=== PATIENT | male | born 1955 | race Caucasian/White ===

== ENCOUNTER → 2016-06-08 | Outpatient (CLI) | payer BC ==
[~2016-06-08] MED LIST: HYDR-5688 PO
--- NOTE | 2016-06-08 11:24 | DIAGNOSTIC IMAGING REPORT ---
MRI OF THE RIGHT SHOULDER WITHOUT CONTRAST CLINICAL HISTORY: Post traumatic stiffness of the right shoulder. Closed fracture of proximal right humerus. COMPARISON STUDY: CT of the right shoulder February 01, 2016 and right shoulder radiograph April 17, 2016. TECHNIQUE: Utilizing 1.5 Roberta magnet and dedicated coil, multiplanar, multiecho imaging of the right shoulder was performed without intravenous or intra-articular contrast. FINDINGS: Note is made of a mildly displaced right humeral neck and head fracture that extends to the greater tuberosity. Fracture alignment is unchanged. The fracture is mildly impacted. Partial interval healing is noted. Note is made of a 2.2 x 1.9 cm focus of serpiginous signal abnormality along the lateral superior aspect of the right humeral head which is consistent with avascular necrosis. No additional sites of avascular necrosis are present. There is a partial tear of the proximal long head of biceps tendon. The glenoid labrum is suboptimally assessed on this nonarthrogram exam but appears truncated. There is tendinopathy of distal supraspinatus with a high-grade partial-thickness tear and suspected small full-thickness tear. No tendon retraction or significant muscular atrophy is present. Mild degenerative changes of the right shoulder are present. There is no joint effusion. There is no mass or fluid collection adjacent to the right shoulder. There is trace fluid within the subacromial/subdeltoid bursa. IMPRESSION: 1. No change in alignment of the partially healed right humeral neck fracture that extends to the right humeral head with involvement of the greater tuberosity. Fracture healing is somewhat less than expected given the age of the fracture. 2. 2.9 x 1.9 cm focus of signal abnormality within the lateral superior aspect of the right humeral head consistent with avascular necrosis. 3. Extensive tendinopathy with high-grade partial-thickness tear and suspected small full-thickness tear of distal supraspinatus. 4. Partial tear of the proximal long head of the biceps tendon. 5. Truncated labrum. Electronically signed by: Eric Mullen M.D. 06/08/2016 11:22 AM Dictated Date/Time: 06/08/2016 11:10 AM
== END | disposition home or self-care (01) ==
LOC: C.MRI 09:37
PROVIDERS: ATTEND Physical Medicine & Rehabilitation Sports Medicine
DX: S42.231D 3-part fracture of surgical neck of right humerus, subsequent encounter for fracture with routine healing (principal); X58.XXXD Exposure to other specified factors, subsequent encounter; M25.611 Stiffness of right shoulder, not elsewhere classified; R93.8 Abnormal findings on diagnostic imaging of other specified body structures; S46.011A Strain of muscle(s) and tendon(s) of the rotator cuff of right shoulder, initial encounter; S46.111A Strain of muscle, fascia and tendon of long head of biceps, right arm, initial encounter; S43.431A Superior glenoid labrum lesion of right shoulder, initial encounter; X58.XXXA Exposure to other specified factors, initial encounter

== ENCOUNTER → 2016-06-13 | Outpatient (CLI) | payer BC, OTHER | END | disposition home or self-care (01) | LOC: C.RDSM 10:30 | PROVIDERS: ATTEND Physical Medicine & Rehabilitation Sports Medicine | DX: S42.231D 3-part fracture of surgical neck of right humerus, subsequent encounter for fracture with routine healing (principal); X58.XXXD Exposure to other specified factors, subsequent encounter; M87.3 Other secondary osteonecrosis ==